=== PATIENT | male | born 1995 | race Caucasian/White ===

== ENCOUNTER 2019-01-08 15:39 | Emergency (ER) | payer OTHER, BC ==
[2019-01-08 15:44] VITALS: BMI 19.1
[2019-01-08] MEDS ORDERED: ACETAMINOPHEN 1000 MG/100 ML VIAL (NON FORMULARY) IVPB ONE (15:45)
[2019-01-08] MEDS ORDERED: ONDANSETRON 4 MG/2 ML VIAL IVPUSH ONE (15:45)
[2019-01-08] MEDS ORDERED: SODIUM CHLORIDE 1,000 ML IV STA (15:45)
--- NOTE | 2019-01-08 15:45 | PDOC ---
Rapid Medical Evaluation Medical Evaluation: I have performed a brief in-person evaluation of this patient. The patient presents with a chief complaint of: c/o L sided abd pain intermittently last week, +nausea and NBNB emesis; denies fever, diarrhea, urinary symptoms, prior abd surgeries Pertinent physical exam findings: In NAD, abdomen soft, NT; mild L CVA tenderness I have ordered the following: Labs, IVF, zofran The patient will proceed to the ED for further evaluation. 01/08/19 15:41
[2019-01-08] MEDS ORDERED: ACETAMINOPHEN INJECTION 100 ML IVPB ONE (16:32)
[2019-01-08] MEDS ORDERED: ONDANSETRON 4 MG/2 ML VIAL ONE (16:33)
[2019-01-08 16:38] LABS: BASO % 0.4 % (0-2.0); EOS % 1.3 % (0-4.5); HEMATOCRIT 41.8 % (35.4-49); HEMOGLOBIN 13.9 GM/dL (11.7-16.9); LYMPH % 12.7 % (8-40); MCH 31.1 pg (25.7-33.7); MCHC 33.4 g/dl (32.0-35.9); MEAN CELL VOLUME 93.3 fl (80-96); MEAN PLT VOLUME 9.1 fl (7.5-11.1); MONO % 10.1 % (3.8-10.2); NEUT % 75.5 % (42.8-82.8); PLATELET COUNT 257 K/MM3 (134-434); RBC 4.48 M/mm3 (4.00-5.60); RDW 13.3 % (11.9-15.9); WHITE BLOOD COUNT 12.2 K/mm3 (4.0-10.0)
[2019-01-08 17:06] LABS: URINE APPEARANCE CLEAR; URINE BILIRUBIN NEGATIVE (NEGATIVE); URINE COLOR YELLOW; URINE GLUCOSE (UA) NEGATIVE (NEGATIVE); URINE KETONE TRACE (NEGATIVE); URINE LEUK ESTERASE NEGATIVE (NEGATIVE); URINE NITRITE NEGATIVE (NEGATIVE); URINE PROTEIN NEGATIVE (NEGATIVE); URINE UROBILINOGEN 0.2 mg/dL (0.2-1.0)
[2019-01-08 17:09] LABS: ALBUMIN 4.2 g/dl (3.4-5.0); BILIRUBIN,TOTAL 0.3 mg/dL (0.2-1); CALCIUM 9.3 mg/dL (8.5-10.1); CREATININE 1.2 mg/dL (0.55-1.3); POTASSIUM 3.7 mmol/L (3.5-5.1); TOT PROT 7.3 g/dl (6.4-8.2)
--- NOTE | 2019-01-08 17:46 | PDOC ---
History of Present Illness - General Chief Complaint: Pain Stated Complaint: POSSIBLE KIDNEY STONE Time Seen by Provider: 01/08/19 15:41 History Source: Patient Exam Limitations: No Limitations - History of Present Illness Initial Comments: 01/08/19 17:45 Paul Douglas is an otherwise healthy 23M presenting with 1 week L flank pain with N/V. Patient reports one week of intermittent L-sided flank pain with associated nausea and vomiting. Denies any urinary symptoms, no blood or pain with urination. Denies fever, chills, other abdominal pain, chest pain, SOB, palpitations, AADMS, dizziness. Saw Dr. Bowen today, referred to ED for evaluation for kidney stone. Denies prior history of renal stones. Past History - Past Medical History Allergies/Adverse Reactions: Allergies Allergy/AdvReac Type Severity Reaction Status Date / Time No Known Allergies Allergy Verified 01/08/19 15:43 Home Medications: Ambulatory Orders NK [No Known Home Medication] 01/08/19 COPD: No - Psycho Social/Smoking Cessation Hx Smoking History: Never smoked Review of Systems - Review of Systems Able to Perform ROS?: Yes Constitutional: No: Chills, Fever HEENTM: No: Symptoms Reported Respiratory: No: Symptoms reported Cardiac (ROS): No: Symptoms Reported ABD/GI: Yes: Nausea, Vomiting. No: Constipated, Diarrhea : Yes: Flank Pain. No: Burning, Dysuria Musculoskeletal: No: Symptoms Reported Integumentary: No: Symptoms Reported Neurological: No: Symptoms reported Endocrine: No: Symptoms Reported Hematologic/Lymphatic: No: Symptoms Reported All Other Systems: Reviewed and Negative *Physical Exam - Vital Signs Last Vital Signs Temp Pulse Resp BP Pulse Ox 99.5 F 90 18 120/74 99 01/08/19 15:40 01/08/19 15:40 01/08/19 15:40 01/08/19 15:40 01/08/19 15:40 - Physical Exam General Appearance: Yes: Nourished, Appropriately Dressed. No: Apparent Distress HEENT: positive: EOMI, ARGENIS, Normal Voice, Symmetrical, Pharynx Normal, Hearing Grossly Normal. negative: Scleral Icterus (R), Scleral Icterus (L) Neck: positive: Supple, Lymphadenopathy (R), Lymphadenopathy (L). negative: Tender, Rigid Respiratory/Chest: positive: Lungs Clear, Normal Breath Sounds. negative: Respiratory Distress, Accessory Muscle Use, Crackles, Rales, Rhonchi, Stridor, Wheezing Cardiovascular: positive: Regular Rhythm, Regular Rate. negative: Murmur Gastrointestinal/Abdominal: positive: Normal Bowel Sounds, Flat, Soft. negative : Tender, Pulsatile Mass, Guarding, Rebound, Hernia, Mass Musculoskeletal: positive: Normal Inspection, CVA Tenderness (L) Extremity: positive: Normal Capillary Refill, Normal Inspection, Normal Range of Motion. negative: Tender Integumentary: positive: Normal Color, Dry, Warm Neurologic: positive: Alert, Normal Mood/Affect, Normal Response ED Treatment Course - LABORATORY CBC & Chemistry Diagram: 01/08/19 16:12 01/08/19 16:12 - ADDITIONAL ORDERS Additional order review: Laboratory Results 01/08/19 01/08/19 16:12 16:12 Sodium 138 Potassium 3.7 Chloride 103 Carbon Dioxide 31 Anion Gap 5 L BUN 19.0 H Creatinine 1.2 Est GFR (CKD-EPI)AfAm 98.89 Est GFR (CKD-EPI)NonAf 85.32 Random Glucose 94 Calcium 9.3 Total Bilirubin 0.3 AST 20 ALT 26 Alkaline Phosphatase 110 Total Protein 7.3 Albumin 4.2 Lipase 98 Urine Color Yellow Urine Appearance Clear Urine pH 6.0 Ur Specific [place] 1.017 Urine Protein Negative Urine Glucose (UA) Negative Urine Ketones Trace H Urine Blood Negative Urine Nitrite Negative Urine Bilirubin Negative Urine Urobilinogen 0.2 Ur Leukocyte Esterase Negative 01/08/19 16:12 RBC 4.48 MCV 93.3 MCHC 33.4 RDW 13.3 MPV 9.1 Neutrophils % 75.5 Lymphocytes % 12.7 Monocytes % 10.1 Eosinophils % 1.3 Basophils % 0.4 - Medications Given in the ED: ED Medications Discontinued Medications Generic Name Dose Route Start Last Admin Trade Name Freq PRN Reason Stop Dose Admin Acetaminophen 1,000 mg 01/08/19 15:45 01/08/19 16:47 Ofirmev Injection - IVPB 01/08/19 15:46 1,000 mg ONCE ONE Administration Sodium Chloride 1,000 mls @ 1,000 mls/hr 01/08/19 15:45 01/08/19 16:47 Normal Saline - IV 01/08/19 16:44 1,000 mls/hr ASDIR STA Administration Ondansetron HCl 4 mg 01/08/19 15:45 01/08/19 16:47 Zofran Injection IVPUSH 01/08/19 15:46 4 mg ONCE ONE Administration Medical Decision Making - Medical Decision Making 01/08/19 17:45 Paul Douglas is an otherwise healthy 23M presenting with 1 week L flank pain with N/V. Pain is intermittent, patient has no urinary sx, fever, chills concerning for infection, symptoms highly consistent with renal colic. Triage labs notable for WBC 12.2, UA shows no blood or UTI. Obtaining CT spiral for r/o renal calculus. 01/08/19 19:19 Impression: Minimal to mild left hydroureteronephrosis is noted to the level of the lower pelvis. A 2 mm calcification is seen within the left lower pelvis adjacent to the ureterovesical junction possibly representing a distal ureteral calculus versus an incidental periureteral phlebolith. If there is ongoing symptomatology additional evaluation utilizing contrast enhanced CT/CT urography may be considered. No renal or urinary bladder calculus is identified. Gallbladder contraction is noted which may be physiologic in nature as noted above. Patient stable to be discharged home with stone precautions. Patient advised to drink a lot of fluids and take Motrin PRN until stone passes. Discharge - Discharge Information Problems reviewed: Yes Clinical Impression/Diagnosis: Stones, urinary tract Qualifiers: Urinary calculus location: lower urinary tract Qualified Code(s): N21.9 - Calculus of lower urinary tract, unspecified; N21 - Calculus of lower urinary tract Condition: Stable Disposition: HOME - Admission No - Follow up/Referral Referrals: Carlos Bowen MD [Primary Care Provider] - - Patient Discharge Instructions Patient Printed Discharge Instructions: DI for Kidney Stones Additional Instructions: Today you were evaluated for kidney stones. Your CT scan shows that you have a small stone that is almost out. You will have one or two more episodes of pain, and then it will pass. Keep hydrated with lots of fluids and take Motrin as needed as labeled on the bottle. Please follow-up with your primary care doctor in the next 3 days for further care. If you experience worsening pain, become unable to urinate, abdominal pain, nausea, vomiting, please return to the emergency room. - Post Discharge Activity
[2019-01-08 20:43] VITALS: BP 110/78; PULSE 88; TEMP 98
--- NOTE | 2019-01-08 22:41 | PDOC ---
Documentation entered by Cory Leonard SCRIBE, acting as scribe for Calli Chin MD. Calli Chin MD: This documentation has been prepared by the Hroacio moreira Daniel, SCRIBE, under my direction and personally reviewed by me in its entirety. I confirm that the documentation accurately reflects all work, treatment, procedures, and medical decision making performed by me. Attending Attestation - Resident Resident Name: Jose Conrad - ED Attending Attestation I have performed the following: I have examined & evaluated the patient, The case was reviewed & discussed with the resident, I agree w/resident's findings & plan, Exceptions are as noted - HPI HPI: 01/08/19 18:57 23yoM no pmhx prsnets w/ intermitntet L flank pain x yeserday. Pain is sudden in onset, severe, causes nasea and vomiing and hten will suddenly resolve. Als c /o some discomfort w/ urination during this time. has never had anything like this before. - Physicial Exam PE: 01/08/19 18:57 Vital Signs - 24 hr 01/08/19 15:40 Temperature 99.5 F Pulse Rate 90 Respiratory 18 Rate Blood Pressure 120/74 O2 Sat by Pulse 99 Oximetry (%) NAD, well appearing soft NTND, no guarding, no rebound A&O x 3 - Medical Decision Making 01/08/19 18:58 23yoM w/ colicky L flank pain asoc w/ n/v x yesterday. Concern for renal colic. - lab - ua - ctap renal stone protocol - dispo per results.
== END 2019-01-08 20:43 | disposition home or self-care (01) ==
LOC: JER 15:39
PROC: 3E033NZ Introduction of Analgesics, Hypnotics, Sedatives into Peripheral Vein, Percutaneous Approach (ICD-10-PCS; principal; 2019-01-08)
PROC: 3E033GC Introduction of Other Therapeutic Substance into Peripheral Vein, Percutaneous Approach (ICD-10-PCS; 2019-01-08)
DX: N21.8 Other lower urinary tract calculus (principal)
CPT/HCPCS: 36415; 74176-TC; 80053; 81003; 83690; 85025; 87086; 99282-25; J0131; J7030

== ENCOUNTER 2024-01-11 12:29 | Emergency (ER) | payer BC, OTHER ==
[2024-01-11 12:50] VITALS: TEMP 97.6; BMI 20.7
[2024-01-11] MEDS ORDERED: ACETAMINOPHEN INJECTION 100 ML ONE (13:25)
[2024-01-11] MEDS ORDERED: ONDANSETRON 4 MG/2 ML VIAL ONE (13:26)
[2024-01-11 13:27] LABS: BASO % 0.4 % (0-2.0); HEMATOCRIT 41.7 % (35.4-49); LYMPH % 12.3 % (8-40); MCH 31.5 pg (25.7-33.7); MCHC 33.5 g/dl (32.0-35.9); MONO % 5.2 % (3.8-10.2); NEUT % 79.1 % (42.8-82.8); PLATELET COUNT 238 10^3/uL (134-434); RBC 4.44 M/mm3 (4.00-5.60); RDW 13.2 % (11.9-15.9); WHITE BLOOD COUNT 9.2 K/mm3 (4.0-10.0)
[2024-01-11 13:33] LABS: INR 1.13 (0.83-1.09)
[2024-01-11] MEDS: ONDANSETRON 4 MG/2 ML VIAL IVPUSH ONE (13:33)
[2024-01-11] MEDS: ACETAMINOPHEN 1000 MG/100 ML BAG IVPB ONE (13:33)
[2024-01-11 13:45] LABS: POTASSIUM 4.5 mmol/L (3.5-5.1)
[2024-01-11 13:47] LABS: CALCIUM 9.3 mg/dL (8.5-10.1)
[2024-01-11 13:48] LABS: ALBUMIN 4.3 g/dl (3.4-5.0); BLOOD UREA NITROGEN 13.5 mg/dL (7-18)
[2024-01-11 13:51] LABS: CREATININE 0.9 mg/dL (0.55-1.3)
[2024-01-11 13:52] LABS: BILIRUBIN,TOTAL 0.5 mg/dL (0.2-1)
[2024-01-11 13:53] LABS: TOT PROT 7.7 g/dl (6.4-8.2)
[2024-01-11 15:16] LABS: EPI CELLS 34 /uL (0-25.1); HYALINE CASTS 11 /uL (0-3.1); PH,URINE 6.5 (5.0-8.0); URINE APPEARANCE CLEAR; URINE BACTERIA 9 /uL (0-1359); URINE BILIRUBIN NEGATIVE (NEGATIVE); URINE COLOR YELLOW; URINE GLUCOSE (UA) NEGATIVE (NEGATIVE); URINE KETONE NEGATIVE (NEGATIVE); URINE LEUK ESTERASE NEGATIVE (NEGATIVE); URINE NITRITE NEGATIVE (NEGATIVE); URINE PROTEIN 1+ (NEGATIVE); URINE RBC 919 /uL (0-23.9)
[2024-01-11 15:21] LABS: URINE WBC 95 /uL (0-25.8)
[2024-01-11 15:46] VITALS: BP 97/53; PULSE 67; RESP 20
== END 2024-01-11 15:48 | disposition home or self-care (01) ==
LOC: JER 12:29
PROC: 3E033NZ Introduction of Analgesics, Hypnotics, Sedatives into Peripheral Vein, Percutaneous Approach (ICD-10-PCS; principal; 2024-01-11)
PROC: 3E033GC Introduction of Other Therapeutic Substance into Peripheral Vein, Percutaneous Approach (ICD-10-PCS; 2024-01-11)
DX: R31.9 Hematuria, unspecified (principal); N20.0 Calculus of kidney
CPT/HCPCS: 36415; 74176-TC; 80053; 81003; 85025; 85610; 86850; 86900; 86901; 87086; 93005; 93010; 99284-25; J0131